=== PATIENT | female | born 1980 ===

== ENCOUNTER 2020-06-01 05:51 | Day surgery (SDC) | payer OTHER | END 2020-06-01 10:33 | disposition home or self-care (01) | LOC: AMB-ENDOS 05:51 | PROVIDERS: ATTEND Surgery | DX: K62.89 Other specified diseases of anus and rectum (principal); Z12.11 Encounter for screening for malignant neoplasm of colon; Z20.828 Contact with and (suspected) exposure to other viral communicable diseases ==